=== PATIENT | female | born 1960 | race Caucasian/White ===

== ENCOUNTER 2018-01-25 06:59 | Inpatient (IN) ==
--- NOTE | 2018-01-23 13:20 | XRay Report ---
CLINICAL INFORMATION: pre surgery COMPARISON: None. FINDINGS: The heart size, mediastinum and pulmonary vessels are unremarkable. The lungs are clear. There are no effusions. The bones and soft tissues are within normal limits. IMPRESSION: Normal chest. Interpreted and Authenticated by: Eric Grace 01/23/18
[2018-01-23 14:45] LABS: Basophils # (Auto) 0 K/mcL (0.0-0.3); Basophils % (Auto) 0.3 % (0.0-2.0); Eosinophils # (Auto) 0.1 K/mcL (0.0-0.7); Eosinophils % (Auto) 2.5 % (0.0-7.0); Granulocytes % (Auto) 57.3 % (38.0-78.0); Lymphocytes # (Auto) 1.5 K/mcL (1.5-4.8); Lymphocytes % (Auto) 32.5 % (15.5-49.0); Mean Cell Volume 88.6 fL (80.0-100.0); Mean Corpuscular HGB Conc 33.6 g/dL (31.0-36.0); Mean Corpuscular Hemoglobin 29.8 pg (26.0-34.0); Monocytes # (Auto) 0.3 K/mcL (0.1-0.9); Monocytes % (Auto) 7.4 % (1.0-12.0); Platelet Count 372 K/mcL (140-440); RBC 4.32 M/mcL (4.00-5.20); Red Cell Distribution Width 14.1 % (11.5-14.5)
[2018-01-23 14:47] LABS: ALT/SGPT 16 U/l (0-40); Albumin 4.6 gm/dL (3.2-5.2); Albumin/Globulin Ratio 1.4 (1.0-2.3); Alkaline Phosphatase 76 U/L (39-117); Blood Urea Nitrogen 15 mg/dl (6-20)
[~2018-01-25 06:59] MED LIST: cefOXitin 2 GM VIAL IV SCH; metroNIDAZOLE 500 MG/100 ML BAG IV SCH
[2018-01-25] MEDS ORDERED: LIDOCAINE HCL/PF 100 MG/5 ML SYRINGE IV ONE (10:15)
[2018-01-25] MEDS ORDERED: DEXAMETHASONE 10 MG/ML VIAL IV ONE (10:15)
[2018-01-25] MEDS ORDERED: PROPOFOL 200 MG/20 ML VIAL IV ONE (10:15)
[2018-01-25] MEDS ORDERED: MIDAZOLAM 5 MG/5 ML VIAL IV ONE (10:15)
[2018-01-25] MEDS ORDERED: diphenhydrAMINE 50 MG/ML VIAL IV ONE (10:15)
[2018-01-25] MEDS ORDERED: GLYCOPYRROLATE 0.2 MG/ML VIAL IV ONE (10:15)
[2018-01-25] MEDS ORDERED: ONDANSETRON 4 MG/2 ML VIAL IV ONE (10:15)
[2018-01-25] MEDS ORDERED: ROCURONIUM 10 MG/ML ML IV ONE (10:15)
[2018-01-25] MEDS ORDERED: HYDROmorphone 2 MG/ML VIAL IV ONE (10:15)
[2018-01-25] MEDS ORDERED: HETASTARCH 6% 500 ML BAG IV ONE (10:15)
[2018-01-25] MEDS ORDERED: fentaNYL 250 MCG/5 ML VIAL IV ONE (10:15)
[2018-01-25] MEDS ORDERED: NEOSTIGMINE 1 MG/ML VIAL IV ONE (10:15)
[2018-01-25] MEDS ORDERED: ePHEDrine 50 MG/ML AMPUL IV ONE (10:15)
[2018-01-25 10:39] LABS: Appearance,Urine TURBID; Bacteria,Urine 0 /hpf (0); Bilirubin,Urine NEG (NEG); Color,Urine YELLOW; Glucose,Urine (UA) NEGATIVE (NEG); Leukocyte Esterase,Urine NEG /uL (NEG); Mucus,Urine MANY /hpf (0); Protein,Urine 100 mg/dL (NEG); Specific Gravity,Urine 1.028 (1.000-1.035); Urine Amorphous Crystals MANY /hpf (0); Urine Blood 2+ (MODERATE) ery/mcL (<5); Urine Hyaline Cast 12 /lpf (0-2); Urine RBC 13 /hpf (0-1); Urine Squamous Epithelial Cell 1 /hpf (0-4); Urine Transitional Epi Cells 1 /hpf (0-2); Urine WBC 0 /hpf (0-4); Urobilinogen,Urine NEG (NEG)
[2018-01-25] MEDS ORDERED: NALOXONE HCL 0.4 MG/ML VIAL IV PRN (11:55)
[2018-01-25] MEDS ORDERED: ACETAMINOPHEN 1,000 MG/100 ML BOTTLE IV ONE (11:55)
[2018-01-25] MEDS ORDERED: KETOROLAC 15 MG/ML VIAL IV PRN (11:55)
[2018-01-25] MEDS ORDERED: MEPERIDINE 25 MG/ML SYRINGE IV PRN (11:55)
[2018-01-25] MEDS ORDERED: HYDROmorphone 2 MG/ML VIAL IV PRN (11:55)
[2018-01-25] MEDS ORDERED: ONDANSETRON 4 MG/2 ML VIAL IV PRN (11:55)
[2018-01-25] MEDS ORDERED: diphenhydrAMINE 50 MG/ML VIAL IV PRN (11:55)
[2018-01-25] MEDS ORDERED: BENZOCAINE/MENTHOL 1 LOZENGE PO PRN (11:55)
[2018-01-25] MEDS ORDERED: IPRATROPIUM/ALBUTEROL 3 ML AMPUL.NEB NEB PRN (11:55)
[2018-01-25] MEDS ORDERED: FLUMAZENIL 0.1 MG/ML ML IV PRN (11:55)
[2018-01-25] MEDS ORDERED: LACTATED RINGERS 250 ML IV PRN (11:55)
[2018-01-25] MEDS ORDERED: PROMETHAZINE 25 MG/ML VIAL IV PRN (11:55)
[2018-01-25] MEDS ORDERED: LACTATED RINGERS 1,000 ML IV SCH (12:00)
--- NOTE | 2018-01-25 12:18 | Brief Operative Note ---
Date of procedure: 01/25/18 Pre-op diagnosis: RECURRENT DIVERTICULITIS Post-op diagnosis: other (RECURRENT DIVERTICULITIS) Procedure: SIGMOID COLECTOMY Grafts/Implants: No Anesthesia: GETA Findings: DIVERTICULOSIS OF SIGMOID COLON WITH CHRONIC ADHESIONS Complications: none Surgeon: Ebenezer Ospina Estimated blood loss (cc): 50 Specimens Removed/Pathology: other (SIGMOID COLON) Condition: stable Disposition: PACU
[2018-01-25] MEDS: fentaNYL 100 MCG/2 ML VIAL IV PRN ×2 (13:05→13:10)
[2018-01-25] MEDS ORDERED: ACETAMINOPHEN 1,000 MG in PREMIX 1 BAG IV SCH (13:59)
[2018-01-25] MEDS: HYDROmorphone 2 MG/ML VIAL IV PRN ×3 (14:13→21:20)
[2018-01-25] MEDS: 0.9 % SODIUM CHLORIDE 1,000 ML IV SCH (14:29)
[2018-01-25] MEDS: metroNIDAZOLE 500 MG/100 ML BAG IV SCH ×2 (14:29→21:22)
[2018-01-25] MEDS ORDERED: ACETAMINOPHEN 1,000 MG/100 ML BOTTLE IV SCH (15:00)
[2018-01-25] MEDS: cefTRIAXone 1 GM VIAL IV SCH (15:27)
[2018-01-25] MEDS: PANTOPRAZOLE 40 MG VIAL IV SCH (16:41)
[2018-01-25] MEDS ORDERED: BENZOCAINE 1 SPRAY BOTTLE TOPICAL PRN (17:03)
[2018-01-25] MEDS: ACETAMINOPHEN 1,000 MG/100 ML BOTTLE IV SCH ×2 (20:01→23:41)
[2018-01-26] MEDS: HYDROmorphone 2 MG/ML VIAL IV PRN ×8 (00:23→22:15)
[2018-01-26] MEDS: 0.9 % SODIUM CHLORIDE 1,000 ML IV SCH ×4 (00:24→15:42)
[2018-01-26] MEDS: metroNIDAZOLE 500 MG/100 ML BAG IV SCH ×2 (02:19→08:11)
[2018-01-26] MEDS: ACETAMINOPHEN 1,000 MG/100 ML BOTTLE IV SCH ×4 (05:26→23:56)
[2018-01-26 06:13] LABS: Basophils # (Auto) 0 K/mcL (0.0-0.3); Basophils % (Auto) 0.2 % (0.0-2.0); Eosinophils # (Auto) 0 K/mcL (0.0-0.7); Eosinophils % (Auto) 0 % (0.0-7.0); Granulocytes % (Auto) 75.4 % (38.0-78.0); Lymphocytes # (Auto) 1.4 K/mcL (1.5-4.8); Lymphocytes % (Auto) 15.9 % (15.5-49.0); Mean Cell Volume 87.9 fL (80.0-100.0); Mean Corpuscular HGB Conc 33.8 g/dL (31.0-36.0); Mean Corpuscular Hemoglobin 29.7 pg (26.0-34.0); Monocytes # (Auto) 0.7 K/mcL (0.1-0.9); Monocytes % (Auto) 8.5 % (1.0-12.0); Platelet Count 279 K/mcL (140-440); RBC 3.43 M/mcL (4.00-5.20); Red Cell Distribution Width 13.7 % (11.5-14.5)
[2018-01-26 06:39] LABS: ALT/SGPT 14 U/l (0-40); Albumin 3.2 gm/dL (3.2-5.2); Albumin/Globulin Ratio 1.4 (1.0-2.3); Alkaline Phosphatase 51 U/L (39-117); Bilirubin,Direct < 0.2 mg/dL (0.0-0.3); Blood Urea Nitrogen 9 mg/dl (6-20); Gamma Glutamyl Transpeptidase 19 U/L (5-36); Uric Acid 4.7 mg/dL (2.5-8.0)
[2018-01-26] MEDS: PANTOPRAZOLE 40 MG VIAL IV SCH ×2 (07:15→16:28)
[2018-01-26] MEDS: cefTRIAXone 1 GM VIAL IV SCH (09:03)
[2018-01-26] MEDS ORDERED: PROMETHAZINE 25 MG/ML VIAL IV PRN (11:32)
--- NOTE | 2018-01-26 13:53 | General Surgery Progress Note ---
Subjective Patient reports: feels better, still having pain, no flatus, no bowel movement, nausea, afebrile Narrative: Note initiated : 01/26/18 at 1:51 pm Service Date, if different from initiated Date: [] Patient: Josiah Porter 58 y/o F admitted on 01/25/18 for Sigmoid Colectomy. Chief Complaint: [patient is stable. She had nausea last evening and today but it is improved with her present dose promethazine. Her pain is controlled. She is not had flatus. She denies chest pain or shortness of breath.] Objective Temp Pulse Resp BP Pulse Ox 97.8 F 67 8 L 116/72 98 01/26/18 12:00 01/26/18 12:27 01/26/18 12:27 01/26/18 12:27 01/26/18 12:27 - Additional Data Intake & Output - Last 24 hours: Intake & Output 01/24/18 01/25/18 01/26/18 01/27/18 05:59 05:59 05:59 05:59 Intake Total 5430 / 5430 1180 / 1180 Output Total 1550 / 1550 Balance 3880 / 3880 1180 / 1180 Weight 147 lb 155 lb - General physical appearance moderate distress, moderate pain - Eyes PERRL, normal ocular movement - ENT normal pinna, normal nares, normal mucosa, no hearing loss, no congestion - Neck no masses, no bruits, trachea midline, no lymphadenopathy, no venous distension - Respiratory normal expansion, normal respiratory effort, clear to auscultation - Cardiovascular Cardiovascular exam: Present: normal rate and rhythm, RRR, +S1, +S2. Absent: JVD, tachycardia - Abdomen tender (moderate abnormal wall tenderness; hypoactive bowel sounds; mild abdominal distention) - Integumentary no rash, no growths, no abnormal pigmentation - Neurologic normal coordination, normal sensation - Musculoskeletal normal gait, normal posture - Psychiatric oriented to time, oriented to person, oriented to place, speech is normal, memory intact - Labs 01/26/18 04:45 01/26/18 04:45 Diabetes panel 01/26/18 Range/Units 04:45 Sodium 138 (133-145) mmol/L Potassium 3.9 (3.3-5.1) mmol/L Chloride 102 (96-108) mmol/L Carbon Dioxide 25 (22-30) mmol/L BUN 9 (6-20) mg/dl Creatinine 0.7 (0.6-1.1) mg/dl Glucose 111 H (70-105) mg/dL Calcium 8.0 L (8.6-10.4) mg/dl AST 18 (0-37) U/l ALT 14 (0-40) U/l Alkaline Phosphatase 51 (39-117) U/L Total Protein 5.5 L (5.9-8.4) gm/dL Albumin 3.2 (3.2-5.2) gm/dL Triglycerides 69 (<150) mg/dl Calcium panel 01/26/18 Range/Units 04:45 Calcium 8.0 L (8.6-10.4) mg/dl Phosphorus 4.0 (2.7-4.5) mg/dL Albumin 3.2 (3.2-5.2) gm/dL Pituitary panel 01/26/18 Range/Units 04:45 Sodium 138 (133-145) mmol/L Potassium 3.9 (3.3-5.1) mmol/L Chloride 102 (96-108) mmol/L Carbon Dioxide 25 (22-30) mmol/L BUN 9 (6-20) mg/dl Creatinine 0.7 (0.6-1.1) mg/dl Glucose 111 H (70-105) mg/dL Calcium 8.0 L (8.6-10.4) mg/dl Adrenal panel 01/26/18 Range/Units 04:45 Sodium 138 (133-145) mmol/L Potassium 3.9 (3.3-5.1) mmol/L Chloride 102 (96-108) mmol/L Carbon Dioxide 25 (22-30) mmol/L BUN 9 (6-20) mg/dl Creatinine 0.7 (0.6-1.1) mg/dl Glucose 111 H (70-105) mg/dL Calcium 8.0 L (8.6-10.4) mg/dl Total Bilirubin 0.3 (0.0-1.0) mg/dL AST 18 (0-37) U/l ALT 14 (0-40) U/l Alkaline Phosphatase 51 (39-117) U/L Total Protein 5.5 L (5.9-8.4) gm/dL Albumin 3.2 (3.2-5.2) gm/dL Assessment and Plan (1) Diverticulitis large intestine Status: Acute Assessment and plan: Clinically stable postoperative day 1 Continue present therapy Current Visit: Yes - Time Spent With Patient Total time spent is greater than 50% in coordination of care (as documented) at patient's floor/unit and/or counseling patient:
[2018-01-26] MEDS: METOCLOPRAMIDE 10 MG/2 ML VIAL IV SCH ×2 (17:34→23:55)
[2018-01-27] MEDS: 0.9 % SODIUM CHLORIDE 1,000 ML IV SCH ×4 (00:36→17:54)
[2018-01-27] MEDS: HYDROmorphone 2 MG/ML VIAL IV PRN ×4 (04:00→21:44)
[2018-01-27 05:20] LABS: Basophils # (Auto) 0 K/mcL (0.0-0.3); Basophils % (Auto) 0.2 % (0.0-2.0); Eosinophils # (Auto) 0 K/mcL (0.0-0.7); Eosinophils % (Auto) 0.5 % (0.0-7.0); Granulocytes % (Auto) 70.8 % (38.0-78.0); Lymphocytes % (Auto) 23.5 % (15.5-49.0); Mean Cell Volume 89.2 fL (80.0-100.0); Mean Corpuscular HGB Conc 33.2 g/dL (31.0-36.0); Mean Corpuscular Hemoglobin 29.6 pg (26.0-34.0); Monocytes # (Auto) 0.4 K/mcL (0.1-0.9); Platelet Count 261 K/mcL (140-440); Red Cell Distribution Width 13.6 % (11.5-14.5)
[2018-01-27] MEDS: ACETAMINOPHEN 1,000 MG/100 ML BOTTLE IV SCH ×4 (05:40→23:34)
[2018-01-27] MEDS: METOCLOPRAMIDE 10 MG/2 ML VIAL IV SCH ×4 (05:41→23:34)
[2018-01-27 05:44] LABS: ALT/SGPT 11 U/l (0-40); Albumin 2.9 gm/dL (3.2-5.2); Albumin/Globulin Ratio 1.3 (1.0-2.3); Alkaline Phosphatase 47 U/L (39-117); Bilirubin,Direct < 0.2 mg/dL (0.0-0.3); Blood Urea Nitrogen 6 mg/dl (6-20); Gamma Glutamyl Transpeptidase 21 U/L (5-36); Uric Acid 4.9 mg/dL (2.5-8.0)
[2018-01-27] MEDS: PANTOPRAZOLE 40 MG VIAL IV SCH ×2 (07:53→17:07)
[2018-01-27] MEDS ORDERED: POTASSIUM PHOSPHATE 40 MEQ in DEXTROSE 5% IN WATER 500 ML IV ONE (09:00)
[2018-01-27] MEDS: cefTRIAXone 1 GM VIAL IV SCH (09:24)
--- NOTE | 2018-01-27 13:01 | General Surgery Progress Note ---
Subjective Patient reports: feels better, pain is less, no flatus, no bowel movement, afebrile Narrative: Note initiated : 01/27/18 at 1:00 pm Service Date, if different from initiated Date: [] Patient: Josiah Porter 58 y/o F admitted on 01/25/18 for Sigmoid Colectomy. Chief Complaint: [patient is doing well. She states that her pain is less. She has not had flatus or bowel movements. She is afebrile. She denies cough or congestion. She does not have shortness of breath chest pain. Hemoglobin is drifting down some but probably is dilutional.urine output is good.] Objective Temp Pulse Resp BP Pulse Ox 97.7 F 71 16 130/81 96 01/27/18 11:38 01/27/18 11:38 01/27/18 11:38 01/27/18 11:38 01/27/18 11:38 - Additional Data Intake & Output - Last 24 hours: Intake & Output 01/25/18 01/26/18 01/27/18 01/28/18 05:59 05:59 05:59 05:59 Intake Total 5430 / 5430 4621 / 4621 200 / 200 Output Total 1550 / 1550 1950 / 1950 925 / 925 Balance 3880 / 3880 2671 / 2671 -725 / -725 Weight 155 lb 155 lb - General physical appearance well developed, well nourished, no distress - Eyes PERRL, normal ocular movement - ENT normal pinna, normal nares, normal mucosa, no hearing loss, no congestion - Neck no masses, no bruits, trachea midline, no lymphadenopathy, no venous distension - Respiratory normal expansion, normal respiratory effort, clear to auscultation - Cardiovascular Cardiovascular exam: Present: normal rate and rhythm, RRR, +S1, +S2. Absent: JVD, tachycardia - Abdomen tender (mild incisional tenderness;; slight minimal active bowel sounds; incision looks good; modest amount of distention) - Integumentary no rash, no growths, no abnormal pigmentation - Neurologic normal coordination, normal sensation - Musculoskeletal normal gait, normal posture - Psychiatric oriented to time, oriented to person, oriented to place, speech is normal, memory intact - Labs 01/27/18 04:15 01/27/18 04:15 Diabetes panel 01/27/18 Range/Units 04:15 Sodium 141 (133-145) mmol/L Potassium 3.3 (3.3-5.1) mmol/L Chloride 106 (96-108) mmol/L Carbon Dioxide 25 (22-30) mmol/L BUN 6 (6-20) mg/dl Creatinine 0.6 (0.6-1.1) mg/dl Glucose 75 (70-105) mg/dL Calcium 8.2 L (8.6-10.4) mg/dl AST 17 (0-37) U/l ALT 11 (0-40) U/l Alkaline Phosphatase 47 (39-117) U/L Total Protein 5.2 L (5.9-8.4) gm/dL Albumin 2.9 L (3.2-5.2) gm/dL Triglycerides 102 (<150) mg/dl Calcium panel 01/27/18 01/27/18 Range/Units 04:15 07:32 Calcium 8.2 L (8.6-10.4) mg/dl Phosphorus 1.7 L 2.0 L (2.7-4.5) mg/dL Albumin 2.9 L (3.2-5.2) gm/dL Pituitary panel 01/27/18 Range/Units 04:15 Sodium 141 (133-145) mmol/L Potassium 3.3 (3.3-5.1) mmol/L Chloride 106 (96-108) mmol/L Carbon Dioxide 25 (22-30) mmol/L BUN 6 (6-20) mg/dl Creatinine 0.6 (0.6-1.1) mg/dl Glucose 75 (70-105) mg/dL Calcium 8.2 L (8.6-10.4) mg/dl Adrenal panel 01/27/18 Range/Units 04:15 Sodium 141 (133-145) mmol/L Potassium 3.3 (3.3-5.1) mmol/L Chloride 106 (96-108) mmol/L Carbon Dioxide 25 (22-30) mmol/L BUN 6 (6-20) mg/dl Creatinine 0.6 (0.6-1.1) mg/dl Glucose 75 (70-105) mg/dL Calcium 8.2 L (8.6-10.4) mg/dl Total Bilirubin 0.2 (0.0-1.0) mg/dL AST 17 (0-37) U/l ALT 11 (0-40) U/l Alkaline Phosphatase 47 (39-117) U/L Total Protein 5.2 L (5.9-8.4) gm/dL Albumin 2.9 L (3.2-5.2) gm/dL Assessment and Plan (1) Diverticulitis large intestine Status: Acute Assessment and plan: Clinically stable postoperative day 2 Continue present therapy Current Visit: Yes - Time Spent With Patient Total time spent is greater than 50% in coordination of care (as documented) at patient's floor/unit and/or counseling patient:
[2018-01-28] MEDS: 0.9 % SODIUM CHLORIDE 1,000 ML IV SCH ×4 (01:05→16:39)
[2018-01-28] MEDS: HYDROmorphone 2 MG/ML VIAL IV PRN ×2 (04:02→10:12)
[2018-01-28] MEDS: ACETAMINOPHEN 1,000 MG/100 ML BOTTLE IV SCH ×4 (05:42→23:50)
[2018-01-28] MEDS: METOCLOPRAMIDE 10 MG/2 ML VIAL IV SCH ×4 (05:42→23:51)
[2018-01-28 06:25] LABS: Basophils # (Auto) 0 K/mcL (0.0-0.3); Basophils % (Auto) 0.3 % (0.0-2.0); Eosinophils # (Auto) 0.2 K/mcL (0.0-0.7); Granulocytes % (Auto) 65.3 % (38.0-78.0); Lymphocytes # (Auto) 2.3 K/mcL (1.5-4.8); Lymphocytes % (Auto) 28.2 % (15.5-49.0); Mean Corpuscular HGB Conc 33.5 g/dL (31.0-36.0); Mean Corpuscular Hemoglobin 29.8 pg (26.0-34.0); Monocytes # (Auto) 0.3 K/mcL (0.1-0.9); Monocytes % (Auto) 4.2 % (1.0-12.0); Platelet Count 318 K/mcL (140-440); RBC 3.72 M/mcL (4.00-5.20); Red Cell Distribution Width 13.9 % (11.5-14.5)
[2018-01-28 06:47] LABS: ALT/SGPT 12 U/l (0-40); Albumin 3.4 gm/dL (3.2-5.2); Albumin/Globulin Ratio 1.2 (1.0-2.3); Alkaline Phosphatase 59 U/L (39-117); Bilirubin,Direct < 0.2 mg/dL (0.0-0.3); Blood Urea Nitrogen 3 mg/dl (6-20); Gamma Glutamyl Transpeptidase 25 U/L (5-36); Uric Acid 4.8 mg/dL (2.5-8.0)
[2018-01-28] MEDS: PANTOPRAZOLE 40 MG VIAL IV SCH (07:45)
[2018-01-28] MEDS: cefTRIAXone 1 GM VIAL IV SCH (08:39)
--- NOTE | 2018-01-28 15:05 | General Surgery Progress Note ---
Subjective Patient reports: feels better, pain is less, no flatus, no bowel movement, afebrile Narrative: Note initiated : 01/28/18 at 3:04 pm Service Date, if different from initiated Date: [] Patient: Josiah Porter 58 y/o F admitted on 01/25/18 for Sigmoid Colectomy. Chief Complaint: [patient continues to do well. She denies any chest pain or shortness of breath. Her urine output has increased significantly. Nasogastric output is less 300 cc per 24 hours. She has not had flatus or bowel movement. Her incisional discomfort is well controlled.. She is ambulating without difficulty.white blood count is 8.1; potassium is 3. All other labs are normal.] Objective Temp Pulse Resp BP Pulse Ox 98 F 96 H 16 139/91 97 01/28/18 11:15 01/28/18 11:15 01/28/18 11:15 01/28/18 11:15 01/28/18 11:15 - Additional Data Intake & Output - Last 24 hours: Intake & Output 01/26/18 01/27/18 01/28/18 01/29/18 05:59 05:59 05:59 05:59 Intake Total 5430 / 5430 4621 / 4621 3159.0909 / 3159.0909 1100 / 1100 Output Total 1550 / 1550 1950 / 1950 4750 / 4750 Balance 3880 / 3880 2671 / 2671 -1590.9091 / -1590.9091 1100 / 1100 Weight 155 lb 155 lb 151 lb 8 oz - General physical appearance well developed, well nourished, no distress - Eyes PERRL, normal ocular movement - ENT normal pinna, normal nares, normal mucosa, no hearing loss, no congestion - Neck no masses, no bruits, trachea midline, no lymphadenopathy, no venous distension - Respiratory normal expansion, normal respiratory effort, clear to auscultation - Cardiovascular Cardiovascular exam: Present: normal rate and rhythm, RRR, +S1, +S2. Absent: JVD, tachycardia - Abdomen tender (mild incisional tenderness; good active bowel sounds; INCISION LOOKS GOOD; no distention), bowel sounds (present), surgical scars (none), masses ( none) - Integumentary no rash, no growths, no abnormal pigmentation - Neurologic normal coordination, normal sensation - Musculoskeletal normal gait, normal posture - Psychiatric oriented to time, oriented to person, oriented to place, speech is normal, memory intact - Labs 01/28/18 04:25 01/28/18 04:25 Diabetes panel 01/28/18 Range/Units 04:25 Sodium 139 (133-145) mmol/L Potassium 3.0 L (3.3-5.1) mmol/L Chloride 97 (96-108) mmol/L Carbon Dioxide 24 (22-30) mmol/L BUN 3 L (6-20) mg/dl Creatinine 0.5 L (0.6-1.1) mg/dl Glucose 70 (70-105) mg/dL Calcium 8.6 (8.6-10.4) mg/dl AST 19 (0-37) U/l ALT 12 (0-40) U/l Alkaline Phosphatase 59 (39-117) U/L Total Protein 6.2 (5.9-8.4) gm/dL Albumin 3.4 (3.2-5.2) gm/dL Triglycerides 176 H (<150) mg/dl Calcium panel 01/28/18 Range/Units 04:25 Calcium 8.6 (8.6-10.4) mg/dl Phosphorus 3.0 (2.7-4.5) mg/dL Albumin 3.4 (3.2-5.2) gm/dL Pituitary panel 01/28/18 Range/Units 04:25 Sodium 139 (133-145) mmol/L Potassium 3.0 L (3.3-5.1) mmol/L Chloride 97 (96-108) mmol/L Carbon Dioxide 24 (22-30) mmol/L BUN 3 L (6-20) mg/dl Creatinine 0.5 L (0.6-1.1) mg/dl Glucose 70 (70-105) mg/dL Calcium 8.6 (8.6-10.4) mg/dl Adrenal panel 01/28/18 Range/Units 04:25 Sodium 139 (133-145) mmol/L Potassium 3.0 L (3.3-5.1) mmol/L Chloride 97 (96-108) mmol/L Carbon Dioxide 24 (22-30) mmol/L BUN 3 L (6-20) mg/dl Creatinine 0.5 L (0.6-1.1) mg/dl Glucose 70 (70-105) mg/dL Calcium 8.6 (8.6-10.4) mg/dl Total Bilirubin 0.3 (0.0-1.0) mg/dL AST 19 (0-37) U/l ALT 12 (0-40) U/l Alkaline Phosphatase 59 (39-117) U/L Total Protein 6.2 (5.9-8.4) gm/dL Albumin 3.4 (3.2-5.2) gm/dL Assessment and Plan (1) Diverticulitis large intestine Status: Acute Assessment and plan: Clinically stable postoperative day 3 Continue present therapy Discontinue nasogastric tube Discontinue Yu catheter Clear liquid diet Current Visit: Yes - Time Spent With Patient Total time spent is greater than 50% in coordination of care (as documented) at patient's floor/unit and/or counseling patient:
[2018-01-28] MEDS: oxyCODONE HCL 5 MG TABLET PO PRN ×2 (16:34→21:57)
[2018-01-28] MEDS: PANTOPRAZOLE 40 MG TABLET PO SCH (16:34)
--- NOTE | 2018-01-28 16:43 | Surgical Pathology Report ---
HISTOLOGY SPECIMEN MICROSCOPIC DIAGNOSIS COLON, SIGMOID, PARTIAL COLECTOMY: -- COLONIC MUCOSA WITH DIVERTICULOSIS AND ASSOCIATED FIBROSIS. -- VIABLE MARGINS OF RESECTION. -- FOUR BENIGN LYMPH NODES. -- NO MALIGNANCY IDENTIFIED. (RLF:sln) PROCEDURAL IMPRESSION Diverticulitis of large intestine. GROSS DESCRIPTION Received in formalin, labeled sigmoid colon, is a 2.5 cm long, up to 3 cm in diameter portion of large intestine with a moderate amount of attached alicia-yellow mesentery. The epiploic fat has an area of alicia-white exudate and possible adhesion, spanning 2.5 x 1.5 cm and located 8.3 cm from the nearest end margin. The margins are undesignated and one is closed by a 3.5 cm long staple line and the opposite end is closed by a 3.2 cm long staple line. The specimen is opened along its length to reveal muddy brown fecal material. The intestinal mucosa has its usual plicated pattern. Numerous diverticular orifices are seen from the surface. No mass lesions are identified. The wall is up to 0.6 cm thick. The bowel is serially sectioned along its length and numerous diverticula have peridiverticular fibrosis. No periappendiceal abscesses or areas of perforation are identified. A few unremarkable lymph nodes are scattered within the mesentery. Media Account Executive sections are submitted as follows: A1 - end margins; A2 - bowel wall adjacent to alicia-white serous adhesion; A3 - additional adhesion in diverticula; A4 - franchise sales representative diverticula; A5 - candidate lymph nodes. (DMT:adj) Electronically Signed by: Aida Roach M.D.
[2018-01-29] MEDS: METOCLOPRAMIDE 10 MG/2 ML VIAL IV SCH ×2 (04:13→11:12)
[2018-01-29] MEDS: 0.9 % SODIUM CHLORIDE 1,000 ML IV SCH ×2 (04:17→05:50)
[2018-01-29] MEDS: ACETAMINOPHEN 1,000 MG/100 ML BOTTLE IV SCH ×2 (05:50→12:35)
[2018-01-29 06:43] LABS: Basophils # (Auto) 0 K/mcL (0.0-0.3); Basophils % (Auto) 0.2 % (0.0-2.0); Eosinophils # (Auto) 0.2 K/mcL (0.0-0.7); Eosinophils % (Auto) 3.5 % (0.0-7.0); Granulocytes % (Auto) 55.3 % (38.0-78.0); Lymphocytes # (Auto) 2.1 K/mcL (1.5-4.8); Mean Cell Volume 88.9 fL (80.0-100.0); Mean Corpuscular HGB Conc 33.8 g/dL (31.0-36.0); Monocytes # (Auto) 0.4 K/mcL (0.1-0.9); Platelet Count 335 K/mcL (140-440); RBC 3.79 M/mcL (4.00-5.20); Red Cell Distribution Width 13.5 % (11.5-14.5)
[2018-01-29 07:06] LABS: ALT/SGPT 26 U/l (0-40); Albumin 3.2 gm/dL (3.2-5.2); Albumin/Globulin Ratio 1.1 (1.0-2.3); Bilirubin,Direct < 0.2 mg/dL (0.0-0.3); Blood Urea Nitrogen 3 mg/dl (6-20); Gamma Glutamyl Transpeptidase 32 U/L (5-36); Uric Acid 5.6 mg/dL (2.5-8.0)
[2018-01-29 07:07] LABS: Alkaline Phosphatase 63 U/L (39-117)
[2018-01-29] MEDS: oxyCODONE HCL 5 MG TABLET PO PRN (07:22)
[2018-01-29] MEDS: PANTOPRAZOLE 40 MG TABLET PO SCH (07:22)
[2018-01-29] MEDS: cefTRIAXone 1 GM VIAL IV SCH (08:55)
--- NOTE | 2018-01-29 13:38 | Discharge Summary ---
Providers - Providers Patient information: Note initiated : 01/29/18 at 1:36 pm Service Date, if different from initiated Date: [] Patient: Josiah Porter 58 y/o F admitted on 01/25/18 for Sigmoid Colectomy. Chief Complaint: [] Date of admission: 01/25/18 Discharge date: 01/29/18 Attending physician: Ebenezer Ospina Hospitalization Hospital course: 58-year-old female with history of recurrent diverticulitis. She underwent sigmoid colectomy on 25 January. She has progressed very nicely and has been advanced to a regular diet without difficulty. Her abdominal incision is healing uneventfully. She is clinically stable and is discharged. Discharge diagnosis: rrecurrent diverticulitis Reason for admission: postoperative sigmoid colectomy Procedures: Sigmoid colectomy Pertinent studies/significant findings: None Complications: None Exam Temp Pulse Resp BP Pulse Ox 98.3 F 90 14 156/88 97 01/29/18 07:47 01/29/18 07:47 01/29/18 07:47 01/29/18 07:47 01/29/18 07:47 - General physical appearance well developed, well nourished, no distress - Eyes PERRL, normal ocular movement - ENT normal pinna, normal nares, normal mucosa, no hearing loss, no congestion - Head Head exam IM: Present: atraumatic, normocephalic - Neck no masses, no bruits, trachea midline, no lymphadenopathy, no venous distension - Cardiovascular Cardiovascular exam IM: Present: normal rate and rhythm - Respiratory normal expansion, normal respiratory effort, clear to percussion, clear to auscultation - Abdomen Abdomen: Present: soft, tender (mild incisional tenderness otherwise benign abdomen), bowel sounds Hernia: Present: none - Genitourinary Present: normal external genitalia - Integumentary Present: no rash, no growths, no abnormal pigmentation - Neurologic Present: normal coordination, normal sensation - Musculoskeletal Present: normal gait, normal posture - Psychiatric Present: oriented to time, oriented to person, oriented to place, speech is normal, memory intact Discharge Plan - Patient/Caregiver Discharge Instructions Activity: increase activity as tolerated ( she) Diet: Regular Diet ( advanced diet as tolerated) Additional Instructions: Leave dressing intact until your return to the office Follow-up appointment on March 02 Prescriptions: oxyCODONE/APAP [Percocet 5-325 mg] 1 tab PO Q4H PRN #60 tab PRN Reason: Pain - Follow up Plan Follow up with: Ebenezer Ospina MD [Physician] - 02/11/18 10:00 am Disposition: Home, Self-Care Prognosis: Good Rehab Potential: Good I certify that the patient requires SNF services.: No Overall status at discharge: patient is progressing back to baseline Pending Studies Diet GI Soft/Transitional Start SunJan 29 819 Ceftriaxone Sodium (Rocephin) 1 gm IV DAILY EDGAR Last Admin: 01/29/18 08:55 Dose: 1 gm Admin: 01/28/18 08:39 Dose: 1 gm Admin: 01/27/18 09:24 Dose: 1 gm Admin: 01/26/18 09:03 Dose: 1 gm Admin: 01/25/18 15:27 Dose: 1 gm Hydromorphone HCl (Dilaudid) 1 mg IV Q2HP PRN PRN Reason: PAIN LEVEL > 6 Last Admin: 01/28/18 10:12 Dose: 1 mg Admin: 01/28/18 04:02 Dose: 1 mg Admin: 01/27/18 21:44 Dose: 1 mg Admin: 01/27/18 15:55 Dose: 1 mg Admin: 01/27/18 09:33 Dose: 1 mg Admin: 01/27/18 04:00 Dose: 1 mg Admin: 01/26/18 22:15 Dose: 1 mg Admin: 01/26/18 17:08 Dose: 1 mg Admin: 01/26/18 14:15 Dose: 1 mg Admin: 01/26/18 10:12 Dose: 1 mg Admin: 01/26/18 08:11 Dose: 1 mg Admin: 01/26/18 06:16 Dose: 1 mg Admin: 01/26/18 04:19 Dose: 1 mg Admin: 01/26/18 00:23 Dose: 1 mg Admin: 01/25/18 21:20 Dose: 1 mg Admin: 01/25/18 16:42 Dose: 1 mg Admin: 01/25/18 14:13 Dose: 1 mg Acetaminophen (Ofirmev) 1,000 mg in 100 mls @ 200 mls/hr IV Q6 EDGAR Last Admin: 01/29/18 12:35 Dose: 200 mls/hr Infusion: 01/29/18 06:54 Dose: 0 mls/hr Admin: 01/29/18 05:50 Dose: 200 mls/hr Infusion: 01/29/18 00:20 Dose: 200 mls/hr Admin: 01/28/18 23:50 Dose: 200 mls/hr Infusion: 01/28/18 17:51 Dose: 200 mls/hr Admin: 01/28/18 17:21 Dose: 200 mls/hr Infusion: 01/28/18 12:00 Dose: 0 mls/hr Admin: 01/28/18 11:20 Dose: 200 mls/hr Infusion: 01/28/18 06:12 Dose: 200 mls/hr Admin: 01/28/18 05:42 Dose: 200 mls/hr Infusion: 01/28/18 00:04 Dose: 200 mls/hr Admin: 01/27/18 23:34 Dose: 200 mls/hr Infusion: 01/27/18 17:55 Dose: 0 mls/hr Admin: 01/27/18 17:16 Dose: 200 mls/hr Infusion: 01/27/18 12:40 Dose: 0 mls/hr Admin: 01/27/18 12:03 Dose: 200 mls/hr Infusion: 01/27/18 06:15 Dose: 0 mls/hr Admin: 01/27/18 05:40 Dose: 200 mls/hr Infusion: 01/27/18 00:38 Dose: 0 mls/hr Admin: 01/26/18 23:56 Dose: 200 mls/hr Infusion: 01/26/18 18:10 Dose: 0 mls/hr Admin: 01/26/18 17:35 Dose: 200 mls/hr Infusion: 01/26/18 12:15 Dose: 0 mls/hr Admin: 01/26/18 11:33 Dose: 200 mls/hr Infusion: 01/26/18 05:57 Dose: 0 mls/hr Admin: 01/26/18 05:26 Dose: 200 mls/hr Infusion: 01/26/18 00:12 Dose: 0 mls/hr Admin: 01/25/18 23:41 Dose: 200 mls/hr Infusion: 01/25/18 20:35 Dose: 0 mls/hr Admin: 01/25/18 20:01 Dose: 200 mls/hr Sodium Chloride (Sodium Chloride 0.9%) 1,000 mls @ 75 mls/hr IV .[id number] [facility] Last Admin: 01/29/18 05:50 Dose: 75 mls/hr Infusion: 01/29/18 05:50 Dose: 75 mls/hr Admin: 01/29/18 04:17 Dose: Not Given Admin: 01/28/18 16:39 Dose: 75 mls/hr Admin: 01/28/18 15:32 Dose: Metoclopramide HCl (Reglan) 10 mg IV Q6 [facility] Last Admin: 01/29/18 11:12 Dose: Not Given Admin: 01/29/18 04:13 Dose: Not Given Admin: 01/28/18 23:51 Dose: Not Given Admin: 01/28/18 17:20 Dose: 10 mg Admin: 01/28/18 11:17 Dose: 10 mg Admin: 01/28/18 05:42 Dose: 10 mg Admin: 01/27/18 23:34 Dose: 10 mg Admin: 01/27/18 17:13 Dose: 10 mg Admin: 01/27/18 12:02 Dose: 10 mg Admin: 01/27/18 05:41 Dose: 10 mg Admin: 01/26/18 23:55 Dose: 10 mg Admin: 01/26/18 17:34 Dose: 10 mg Oxycodone HCl (Roxicodone) 10 mg PO Q4HP PRN PRN Reason: PAIN LEVEL 3-6 Last Admin: 01/29/18 07:22 Dose: 10 mg Admin: 01/28/18 21:57 Dose: 10 mg Admin: 01/28/18 16:34 Dose: 10 mg Pantoprazole Sodium (Protonix) 40 mg PO BIDAC [facility] Last Admin: 01/29/18 07:22 Dose: 40 mg Admin: 01/28/18 16:34 Dose: 40 mg Promethazine HCl (Phenergan) 12.5 mg IV Q4HP PRN PRN Reason: Nausea And Vomiting Last Admin: 01/26/18 12:22 Dose: 12.5 mg Shift Summary 01/29/18 04:14 Shift Summary by Remedios Michelle Pt has had several stools this shift. Reglan help at pt request please address with . Medicated with oxy at 2200 pain well controlled. Pt is up at jaylyn in room. Midline abd incision wnl dressing was changed yesterday. Pt would like oxy with breakfast. Will update with verbal report. Initialized on 01/29/18 04:14 - END OF NOTE
--- NOTE | 2018-01-30 13:46 | Operative Note ---
DATE OF OPERATION: 01/25/2018 PREOPERATIVE DIAGNOSIS: Recurrent diverticulitis. POSTOPERATIVE DIAGNOSIS: Recurrent diverticulitis. PROCEDURE: Sigmoid colectomy. SURGEON: Ebenezer Ospina MD FINDINGS: Diverticulosis of sigmoid colon with chronic adhesions from previous infection. DESCRIPTION OF PROCEDURE: Under general anesthesia, the patient's abdomen was prepped and draped in a sterile field. Limited lower midline abdominal incision was made. Exploration of the abdomen revealed dense adhesions of the sigmoid colon in two areas in the pelvis and in the left lower quadrant. The lower portion of the sigmoid was adherent to the tube and ovary. These adhesions were taken down with sharp dissection using Metzenbaum scissors. The adhesions to the lateral pelvic wall in the left lower quadrant were taken down with Metzenbaum scissors. Inspection of the colon revealed that most of the diverticula were in the mid portion of the sigmoid. It was elected to remove this segment in its entirety. The colon was divided proximal and distal using contour stapler. The mesocolon was divided using LigaSure. The specimen was passed off. The proximal sigmoid and descending colon were mobilized up to the splenic flexure and this allowed length to be placed into the pelvis without tension. The end of the rectum was sutured to the side of the sigmoid segment using an outer layer of 2-0 Prolene. There was an inner layer of running 2-0 Monocryl and an anterior outer layer of running 200 Prolene. There was a wide secure anastomosis. Mesenteric defect was closed with interrupted 3-0 silk. Irrigation was carried out. Nasogastric tube was positioned in the stomach. Sponge, needle, instrument and blade counts were verified as correct. The fascia and peritoneum were closed with running #1 Prolene. Subcutaneous tissue was irrigated and closed with 2-0 Monocryl. The skin was closed with italo. The patient tolerated the procedure well. Tegaderm dressing was placed. She was awakened, transferred to a bed and taken to the postanesthetic care unit in a stable, satisfactory condition. LCS:[email or web address] Job ID: [id number] Doc ID: [id number] Ebenezer Ospina M.D.
== END 2018-01-29 14:25 | disposition home or self-care (01) | DRG 331 ==
LOC: MEDSUR 06:59
PROVIDERS: ADMIT Family Medicine Adult Medicine; ATTEND Family Medicine Adult Medicine
CPT/HCPCS: 44140